=== PATIENT | male | born 1985 | race Caucasian/White ===

== ENCOUNTER → 2018-01-16 | Outpatient (CLI) | payer OTHER | LOC: BMCIMAGING 15:41 | PROVIDERS: ATTEND Internal Medicine | DX: Z01.818 Encounter for other preprocedural examination (principal); R00.2 Palpitations; R07.89 Other chest pain ==

== ENCOUNTER 2018-08-16 22:45 | Emergency (ER) | payer OTHER ==
[2018-08-16] MEDS ORDERED: KETOROLAC 15 MG/1 ML SDV IM ONE (23:13)
[2018-08-16] MEDS ORDERED: LIDOCAINE 4%/MENTHOL 1% PATCH TD ONE (23:13)
--- NOTE | 2018-08-16 23:19 | EDPHY ---
H & P Stated Complaint: fell, left rib pain Time Seen by Provider: 08/16/18 23:04 HPI/ROS: HPI: The patient presents with a fall which occurred about 1.5 hr prior to presentation, landing on his left side, now complaining of left anterior rib pain. The patient was in a dark druze and tripped, falling forward onto his left chest. His hands did not aid in his fall. He did not lose consciousness. He has had pain ever since which is sharp, just below his left breast, moderate in severity, worse with any changes in position, sharp in nature. He does not have any shortness of breath with this. REVIEW OF SYSTEMS 10 systems were reviewed and negative with the exception of the elements mentioned in the history of present illness. PMHx: History of traumatic brain injury, history of PVCs TRAUMA PHYSICAL General Appearance: Alert, no distress Head: Atraumatic Eyes: Pupils equal, round, reactive ENT, Mouth: No hemotypanium, no oral trauma Neck: Non- tender, trachea midline Respiratory: Positive left-sided chest wall tenderness at mid axillary to mid clavicular line just below the left breast, no subcutaneous air, lungs clear bilaterally Cardiovascular: Regular rate and rhythm Abdomen: Abdomen is soft and non-tender, pelvis stable Skin: No lacerations, No abrasion Back: No midline T/L/S pain Extremities: Non-tender, full range of motion Neurological: A&Ox3, GCS=15,normal motor function with 5/5 strength in all 4 extremities, normal sensory exam Source: Patient Exam Limitations: No limitations - Personal History Tetanus Vaccine Date: 2013 - Medical/Surgical History Hx Asthma: No Hx Chronic Respiratory Disease: No Hx Diabetes: No Hx Cardiac Disease: Yes Hx Renal Disease: No Hx Cirrhosis: No Hx Alcoholism: No Hx HIV/AIDS: No Hx Splenectomy or Spleen Trauma: No Other PMH: BILAT FRONTAL LOBE BRAIN INJURY. PVC'S. TONSILS ADENOIDS. HEMORRHOIDECTOMY. fissure and tissue removal/reconstruction. meniscus removed. Thyroid disease. does not take med .Says better through diet. - Social History Smoking Status: Never smoked Constitutional: Initial Vital Signs Temperature (C) 36.7 C 08/16/18 22:49 Heart Rate 98 08/16/18 22:49 Respiratory Rate 20 08/16/18 22:49 Blood Pressure 151/86 H 08/16/18 22:49 O2 Sat (%) 96 08/16/18 22:49 O2 Delivery Mode Room Air Allergies/Adverse Reactions: carbamazepine [From Tegretol] Allergy (Verified 01/25/15 15:31) sulfamethoxazole [From Bactrim] Allergy (Verified 01/25/15 15:31) trimethoprim [From Bactrim] Allergy (Verified 01/25/15 15:31) lemonin Allergy (Uncoded 08/16/18 22:49) Home Medications: Medication Instructions Recorded Medical Marijuana 01/20/15 Cbd Oil 05/08/16 Hydrocodone/APAP 325 [[place] 1 each PO Q4-6PRN PRN #11 tab 05/08/16 5/325 (*)] Medical Decision Making - Diagnostics Imaging Results: Imaging Impressions Ribs w/Chest X-Ray 08/16/18 23:12 Impression: Clear lungs. No rib fracture or pneumothorax. Imaging: I viewed and interpreted images myself Differential Diagnosis: 33-year-old male presents with fall from standing, landing on his left chest about 1.5 hr ago, now complaining of left chest pain. Differential diagnosis includes pneumothorax, rib fracture, chest wall contusion. Here, the patient received Toradol and Lidoderm patch. His symptoms improved. He is felt better after the medication. Chest x-ray with rib views was unremarkable. I suspect he has suffered from a chest wall contusion. I have discussed anti-inflammatories with him. He is happy with this plan. - Data Points Medications Given: Discontinued Medications Ketorolac Tromethamine (Toradol) 30 mg IM EDNOW ONE Stop: 08/16/18 23:14 Last Admin: 08/16/18 23:33 Dose: 30 mg Miscellaneous Medication (Icy Hot Lidocaine/Menthol 4%/1% Patch) 1 patch TD EDNOW ONE Stop: 08/16/18 23:14 Last Admin: 08/16/18 23:33 Dose: 1 patch Departure - Departure Disposition: Home, Routine, Self-Care Clinical Impression: Contusion, chest wall Qualifiers: Encounter type: initial encounter Laterality: left Qualified Code(s): S20.212A - Contusion of left front wall of thorax, initial encounter Condition: Good Instructions: Chest Wall Pain (ED) Additional Instructions: We did not find any broken ribs on your x-ray. I recommend you take ibuprofen 400 mg with acetaminophen 1 g every 6 hr as needed for pain. You can use a lidocaine patch 4% which is available [id number] to help with pain as well. Referrals: Trenton Tello DO [Doctor of Osteopathy] - As per Instructions Stand Alone Forms: Work Excuse
[2018-08-17 00:56] VITALS: BP 134/97
[2018-08-17] MEDS ORDERED: PATCH REMOVAL 1 EA PATCH TD SCH (21:00)
== END 2018-08-17 00:56 | disposition home or self-care (01) ==
DX: S20.212A Contusion of left front wall of thorax, initial encounter (principal); W19.XXXA Unspecified fall, initial encounter; Y92.22 Religious institution as the place of occurrence of the external cause; Y93.9 Activity, unspecified; Y99.9 Unspecified external cause status
CPT/HCPCS: 71101; 96372; 99284; J1885